=== PATIENT | male | born 1945 | race Two or more races ===

== ENCOUNTER → 2021-02-06 | Outpatient (CLI) | payer MEDICARE | END | disposition home or self-care (01) | LOC: CVU 09:45 | PROVIDERS: ATTEND Internal Medicine Cardiovascular Disease | DX: I34.0 Nonrheumatic mitral (valve) insufficiency (principal); I44.0 Atrioventricular block, first degree; R42 Dizziness and giddiness | CPT/HCPCS: 93306; 93356 ==